=== PATIENT | female | born 1955 | race Caucasian/White ===

== ENCOUNTER 2021-11-23 11:53 | Inpatient (IN) | payer OTHER, SELFPAY ==
[~2021-11-23] VITALS: Ht 170.2 cm; Wt 149.7 kg
[2021-11-23 12:21] VITALS: BP 114/59
--- NOTE | 2021-11-23 14:58 | NUR ---
LAB AT PATIENT BEDSIDE
--- NOTE | 2021-11-23 15:10 | NUR ---
PATIENT ESCORTED TO ULTRASOUND VIA GURNEY
[2021-11-23 15:19] LABS: BASOPHILS # (AUTO) 0.1 K/uL (0.00-0.22); BASOPHILS % (AUTO) 1.2 % (0.0-2.0); EOSINOPHILS # (AUTO) 0.2 K/uL (0-0.4); EOSINOPHILS % (AUTO) 2.6 % (0.0-4.0); HEMATOCRIT 21.9 % (36-48); LYMPHOCYTES # (AUTO) 1.1 K/uL (2.5-16.5); LYMPHOCYTES % (AUTO) 16.6 % (20.5-51.1); MEAN CORPUSCULAR HEMOGLOBIN 26 pg (27-31); MEAN CORPUSCULAR HGB CONC 31 g/dL (33-37); MEAN CORPUSCULAR VOLUME 83.8 fL (80-94); MONOCYTES # (AUTO) 0.5 K/uL (0.8-1.0); MONOCYTES % (AUTO) 7.1 % (1.7-9.3); NEUTROPHILS # (AUTO) 4.7 K/uL (1.8-7.7); NEUTROPHILS % (AUTO) 72.5 % (42.2-75.2); PLATELET COUNT (AUTO) 367 K/uL (140-450); RED BLOOD CELL COUNT(AUTO) 2.61 MIL/uL (4.20-5.40); RED CELL DISTRIBUTION WIDTH 23.1 % (11.6-13.7); WHITE BLOOD COUNT (AUTO) 6.5 K/uL (4.8-10.8)
[2021-11-23 15:27] LABS: HEMOGLOBIN 6.9 g/dL (12.0-16.0)
[2021-11-23 15:37] LABS: CREATININE 0.7 mg/dL (0.6-1.3)
[2021-11-23 15:54] LABS: PROTHROMBIN TIME 11.6 secs (10.8-13.4)
--- NOTE | 2021-11-23 15:57 | NUR ---
EMT OBTAINING 12 LEAD EKG AT BEDSIDE
--- NOTE | 2021-11-23 16:49 | NUR ---
PATIENT REPORTS 10/[address] LOWER BACK[address] ROSA MADE AWARE.
[2021-11-23] MEDS ORDERED: DOCUSATE SODIUM 100 MG GELCAP PO PRN (16:50)
[2021-11-23] MEDS ORDERED: ONDANSETRON 4 MG/2 ML VIAL IM/IVP PRN (16:50)
[2021-11-23] MEDS ORDERED: ACETAMINOPHEN 325 MG TAB PO PRN (16:50)
[2021-11-23] MEDS ORDERED: HYDROcodone/APAP 7.5/325 MG 1 TAB PO PRN (16:50)
[2021-11-23] MEDS ORDERED: guaiFENesin DM 200/20 MG-10 ML 10 ML UDC PO PRN (16:50)
--- NOTE | 2021-11-23 17:00 | NUR ---
PATIENT STATES TO NEED SUCTION, 4 SUCTION PASSES PERFORMED. PATIENT TOLERATED WELL. ALL PATIENT NEEDS MET
[2021-11-23] MEDS: ONDANSETRON 4 MG/2 ML VIAL IVP ONE ×2 (17:14→17:19)
[2021-11-23] MEDS: MORPHINE SULFATE 4 MG/ML SYR IVP ONE ×2 (17:14→17:20)
[2021-11-23] MEDS: DEXT 5% /NACL 0.9% 1,000 ML IV SCH (19:12)
--- NOTE | 2021-11-23 19:26 | NUR ---
Pt report given to [facility]. Transfer of care at this time.
[2021-11-23 19:27] LABS: CHOL/HDL RATIO 2.5 (1-4.5); FREE T4 (FREE THYROXINE) 1.22 ng/dL (0.76-1.46); MAGNESIUM 1.9 mg/dL (1.8-2.4); PHOSPHORUS 3.9 mg/dL (2.5-4.9); THYROID STIMULATING HORMONE 2.32 uIU/mL (0.34-3.74)
--- NOTE | 2021-11-23 20:00 | NUR ---
PAGED DR. TUBBS ABOUT CHANGING PO MEDS TO G-TUBE.
[2021-11-23] MEDS: ZOLPIDEM 5 MG TAB PO PRN (22:31)
--- NOTE | 2021-11-23 22:32 | NUR ---
Attempted to get Urine but unsuccessful. pt had a large clot , tennis ball size, inside the perineum. pericare was perfromed , new brief provided, and pt repositioned. pt in a lateral semi fowlers position. will attempt urine collection at a later time.
--- NOTE | 2021-11-23 22:50 | NUR ---
PER DR TUBBS. ALL PAIN MEDS CHANGED TO GT
--- NOTE | 2021-11-24 00:20 | NUR ---
PATIENT BIB AMBULANCE FROM [facility] FOR LOW HGB. PT STATES SHE HAS HAD VAGINAL BLEEDING FOR 3/4 WEEKS WITH NO STOPPING. DENIES N/V/D; PT HAS A STAGE 2 PRESSUE ULCER ON SACRUM DUE TO IMMOBILIY. PT CANNOT AMBULATE AAOX3; PT DENIES ANY FEVER, CP, SOB, OR COUGH AT THIS TIME; PATIENT STATES PAIN OF 10/10 LEGS. VSS; PATIENT POSITIONED LATERAL SEMI FOWLERS FOR COMFORT; HOB ELEVATED; SIDE RAILSX2; ALLERGIES: LATEX , LISINOPRL, METOPROLOL PMH: DM2, COPD, AFIB, HYPERLIPIDEMIA, HTN, HYPOXIA.
--- NOTE | 2021-11-24 00:23 | NUR ---
pt repostioned, cleaned and given new brief
--- NOTE | 2021-11-24 00:48 | NUR ---
PT REPOSITIONED. GIVEN PILLOW. PT C/O PAIN IN LEGS AND HIPS
[2021-11-24] MEDS ORDERED: ACETAMINOPHEN 325 MG TAB ONE (00:56)
--- NOTE | 2021-11-24 02:30 | NUR ---
pt cleaned and changed. given new brief and repositioned.
[2021-11-24] MEDS: DEXT 5% /NACL 0.9% 1,000 ML IV SCH ×5 (04:07→20:05)
[2021-11-24] MEDS: HYDROcodone/APAP 7.5/325 MG 1 TAB GT PRN ×4 (04:54→21:15)
[2021-11-24 06:07] LABS: T4 (THYROXINE) 6.3 ug/dL (4.5-12.0)
[2021-11-24] MEDS ORDERED: DOCU-300 GT (06:26)
[2021-11-24] MEDS ORDERED: MULT-2112 GT (06:26)
[2021-11-24] MEDS ORDERED: LORA-476 PO (06:26)
[2021-11-24] MEDS ORDERED: SYN.05 GT (06:26)
[2021-11-24] MEDS ORDERED: APIX5TAB GT (06:26)
[2021-11-24] MEDS ORDERED: FENT100T TD (06:26)
[2021-11-24] MEDS ORDERED: MES60 GT (06:26)
[2021-11-24] MEDS ORDERED: ACET-8386 GT (06:26)
[2021-11-24] MEDS ORDERED: ELA50 GT (06:26)
[2021-11-24] MEDS ORDERED: INSU100V6 SQ (06:26)
[2021-11-24] MEDS ORDERED: QUET25TA GT (06:26)
[2021-11-24] MEDS ORDERED: QUET50TA GT (06:26)
[2021-11-24] MEDS ORDERED: GABA300C GT (06:26)
[2021-11-24] MEDS ORDERED: ASCO-518 GT/PO (06:26)
[2021-11-24] MEDS ORDERED: PYRI-218 GT (06:26)
[2021-11-24] MEDS ORDERED: ATOR10TA GT (06:26)
[2021-11-24] MEDS ORDERED: ASPI-1749 GT (06:26)
[2021-11-24] MEDS ORDERED: LANS15EC28 GT (06:26)
[2021-11-24] MEDS ORDERED: MIRABULK GT (06:26)
[2021-11-24] MEDS ORDERED: LEVE500T9 GT (06:26)
--- NOTE | 2021-11-24 07:11 | NUR ---
PT SUCTIONED. 3 PASS THROUGHS
[2021-11-24] MEDS ORDERED: PANTOPRAZOLE 40 MG TABEC PO SCH (09:00)
[2021-11-24] MEDS ORDERED: medroxyPROGESTERone 10 MG TAB PO SCH (09:00)
--- NOTE | 2021-11-24 09:25 | NUR ---
PATIENT HAS BEEN SCREENED AND CATEGORIZED LOW NUTRITION RISK. PATIENT WILL BE SEEN WITHIN 7 DAYS OF ADMISSION. 11/30/[address]
--- NOTE | 2021-11-24 09:40 | NUR ---
PT MOVED FROM CHAIR E TO BED 11. REPORT RECEIVED FROM SARAVANAN PAUL
[2021-11-24] MEDS ORDERED: LORazepam 2 MG/ML VIAL IVP PRN (10:10)
[2021-11-24] MEDS ORDERED: MORPHINE SULFATE 4 MG/ML SYR ONE (10:12)
[2021-11-24] MEDS ORDERED: PANTOPRAZOLE 40 MG INJ VIAL ONE (10:20)
[2021-11-24] MEDS ORDERED: WATER STERILE 10 ML MC ONE (10:21)
[2021-11-24] MEDS: PANTOPRAZOLE 40 MG INJ VIAL IVP SCH (10:31)
--- NOTE | 2021-11-24 10:54 | NUR ---
PATIENT REPOSITIONED WITH PILLOWS UNDER ARMS AND FEET. RESTING COMFORTABLY
--- NOTE | 2021-11-24 11:03 | NUR ---
66 Y/O FEMALE ARRIVED VIA AMBULANCE FROM [facility] C/O VAGINAL BLEEDING XS 2 DAYS PMH DM, COPD, RESP FAILURE WITH TRACH, AFIB, HTN, DVT, HLD, EPTIC ULCER, NEPHROLITHIASIS ALLERGIES LISINOPRIL, METROPOLOL, LATEX RESTING COMFORTABLY AT THIS TIME.
[2021-11-24 11:20] LABS: BASOPHILS # (AUTO) 0.1 K/uL (0.00-0.22); BASOPHILS % (AUTO) 1.2 % (0.0-2.0); EOSINOPHILS # (AUTO) 0.1 K/uL (0-0.4); EOSINOPHILS % (AUTO) 0.9 % (0.0-4.0); HEMATOCRIT 21.9 % (36-48); LYMPHOCYTES # (AUTO) 1.1 K/uL (2.5-16.5); LYMPHOCYTES % (AUTO) 18.2 % (20.5-51.1); MEAN CORPUSCULAR HEMOGLOBIN 26 pg (27-31); MEAN CORPUSCULAR HGB CONC 31 g/dL (33-37); MEAN CORPUSCULAR VOLUME 84.8 fL (80-94); MONOCYTES # (AUTO) 0.4 K/uL (0.8-1.0); MONOCYTES % (AUTO) 6.2 % (1.7-9.3); NEUTROPHILS # (AUTO) 4.6 K/uL (1.8-7.7); NEUTROPHILS % (AUTO) 73.5 % (42.2-75.2); PLATELET COUNT (AUTO) 388 K/uL (140-450); RED BLOOD CELL COUNT(AUTO) 2.58 MIL/uL (4.20-5.40); RED CELL DISTRIBUTION WIDTH 22.6 % (11.6-13.7); WHITE BLOOD COUNT (AUTO) 6.3 K/uL (4.8-10.8)
[2021-11-24 11:34] LABS: HEMOGLOBIN 6.7 g/dL (12.0-16.0)
[2021-11-24 11:52] LABS: ANION GAP 6.7 (8-16); CARBON DIOXIDE 34.1 mmol/L (21-32); CREATININE 0.7 mg/dL (0.6-1.3); POTASSIUM 3.8 mmol/L (3.5-5.1)
--- NOTE | 2021-11-24 12:00 | NUR ---
Consent signed per PATIENT agreeing to administration of blood. Blood has been type and crossmatched. Blood sent from blood bank. Information on unit of blood checked against patient wristband at bedside by two nurses. All information matches. Patient or responsible constitution party informed of potential complications associated with blood transfusion. Informed of possible transfusion reaction symptoms. Aware of need to notify nurse at once of itching, shortness of breath, flushing, feeling of impending doom, or other symptoms not previously present. Vital signs taken within 5 minutes prior to initiation of transfusion. RN will remain with patient for first 15 minutes of transfusion at which time vital signs will be re-assessed.
--- NOTE | 2021-11-24 12:18 | NUR ---
blood tranfusion started at 60ml/hr and increased to 100ml/hr. Vital signs charted and WNL. will continue to monitor
--- NOTE | 2021-11-24 12:54 | NUR ---
BLOOD TRANFUSION INCREASED FROM 100 ML/HR TO 150ML/HR Vital signs charted and WNL. will continue to monitor
--- NOTE | 2021-11-24 13:00 | NUR ---
patient changed and repositioned. Resting comfortably at this time.
[2021-11-24] MEDS: MORPHINE SULFATE 4 MG/ML SYR IVP PRN ×5 (13:08→23:27)
--- NOTE | 2021-11-24 15:00 | NUR ---
BLOOD TRANFUSION COMPLETED AT THIS TIME. NO REACTION NOTED AND VITAL SIGNS WNL
[2021-11-24] MEDS: LORazepam 2 MG/ML VIAL IVP PRN (15:45)
--- NOTE | 2021-11-24 16:15 | NUR ---
PT CHANGED AND REPOSITIONED. RESTING COMFORTABLY.
--- NOTE | 2021-11-24 19:18 | NUR ---
Pt report given to SARAVANAN MACHADO. Transfer of care at this time.
--- NOTE | 2021-11-24 20:05 | NUR ---
C/O PAIN, MEDICATED ORDERED
--- NOTE | 2021-11-24 23:10 | NUR ---
C/O SEVERE PAIN, MEDICATED ORDERED
--- NOTE | 2021-11-24 23:20 | NUR ---
CALLING OUT. REPOSITIONED, LINENS CHANGED. PT WITH MULTIPLE COMPLAINTS. PILLOWS ADJUSTED.
--- NOTE | 2021-11-25 02:55 | NUR ---
C/O PAIN, MEDICATED ORDERED
[2021-11-25] MEDS: MORPHINE SULFATE 4 MG/ML SYR IVP PRN ×6 (03:02→22:46)
--- NOTE | 2021-11-25 04:30 | NUR ---
AWAKE, CALLING OUT. LINENS CHANGED. PT POSITIONED
--- NOTE | 2021-11-25 06:00 | NUR ---
CALLS OUT. "I'M WET, I'M WET AND THERES NO tv" LINENS CHANGED. ASSISTED WITH POSITIONING FOR COMFORT
[2021-11-25] MEDS: LORazepam 2 MG/ML VIAL IVP PRN ×6 (06:43→22:42)
--- NOTE | 2021-11-25 07:39 | NUR ---
REPORT RECEIEVED FROM SARAVANAN MACHADO FOR TRANSFER OF CARE
[2021-11-25 09:22] LABS: BASOPHILS # (AUTO) 0.1 K/uL (0.00-0.22); EOSINOPHILS # (AUTO) 0.2 K/uL (0-0.4); EOSINOPHILS % (AUTO) 3.9 % (0.0-4.0); HEMOGLOBIN 8.7 g/dL (12.0-16.0); LYMPHOCYTES % (AUTO) 16.6 % (20.5-51.1); MEAN CORPUSCULAR HEMOGLOBIN 27 pg (27-31); MEAN CORPUSCULAR HGB CONC 32 g/dL (33-37); MEAN CORPUSCULAR VOLUME 84.6 fL (80-94); MONOCYTES # (AUTO) 0.5 K/uL (0.8-1.0); MONOCYTES % (AUTO) 7.7 % (1.7-9.3); NEUTROPHILS # (AUTO) 4.4 K/uL (1.8-7.7); NEUTROPHILS % (AUTO) 70.8 % (42.2-75.2); PLATELET COUNT (AUTO) 449 K/uL (140-450); RED CELL DISTRIBUTION WIDTH 21.2 % (11.6-13.7); WHITE BLOOD COUNT (AUTO) 6.2 K/uL (4.8-10.8)
[2021-11-25 09:40] LABS: ANION GAP 6.5 (8-16); CREATININE 0.7 mg/dL (0.6-1.3); POTASSIUM 3.5 mmol/L (3.5-5.1)
[2021-11-25] MEDS: DEXT 5% /NACL 0.9% 1,000 ML IV SCH ×3 (10:50→20:47)
--- NOTE | 2021-11-25 10:57 | NUR ---
PATIENT CHANGED AND GIVEN FRESH LINENS. RESTING COMFORTABLY AT THIS TIME
--- NOTE | 2021-11-25 12:31 | NUR ---
Patient appears to be resting comfortably in bed. Vital Signs within normal limits. Respirations even and unlabored.
--- NOTE | 2021-11-25 16:40 | NUR ---
Patient appears to be resting comfortably in bed. Vital Signs within normal limits. Respirations even and unlabored.
--- NOTE | 2021-11-25 18:07 | NUR ---
PATIENT CHANGED, REPOSITIONED AND GIVEN FRESH LINEN. RESTING COMFORTABLY AT THIS TIME.
--- NOTE | 2021-11-25 19:23 | NUR ---
Pt report given to SARAVANAN JAIMES. Transfer of care at this time.
--- NOTE | 2021-11-25 19:23 | NUR ---
REPORT RECEIVED FROM SARAVANAN COBB FOR CONTINUITY OF PT CARE AT THIS TIME.
--- NOTE | 2021-11-25 20:15 | NUR ---
PT APPEARS TO BE RESTING W EYES CLOSED IN SLIGHT R LATERAL /SUPINE POSITION. HOB SLIGHTLY EVELATED. BED LOCKED IN LOWEST POSITION W X2 SIDERAILS UP FOR PT SAFETY. PT CONNECTED TO MONITOR W VSS. PT ON 6L O2 SAT 94% TO TRACH COLLAR. BREATHING EVEN AND UNLABORED. NAD NOTED, WILL CONTINUE TO MONITOR.
--- NOTE | 2021-11-25 21:06 | NUR ---
RT AT BEDSIDE
--- NOTE | 2021-11-25 22:49 | NUR ---
PT C/O 10/10 LEG AND BACK PAIN. PT MEDICATED FOR PAIN. PT REPOSITIONED TO R LATERAL POSITION REQUESTED FOR COMFORT. PT LEGS ELEVATED.
--- NOTE | 2021-11-25 23:30 | NUR ---
PT APPEARS TO BE RESTING W EYES CLOSED IN R LATERAL POSITION. VSS. BREATHING EVEN AND UNLABORED. NAD NOTED, WILL CONTINUE TO MONITOR.
[2021-11-26] MEDS ORDERED: diphenhydrAMINE 50 MG/ML VIAL IVP ONE ×3 (00:05→04:15)
[2021-11-26] MEDS ORDERED: HALOPERIDOL IM 5 MG/ML VIAL IVP ONE ×3 (00:05→04:15)
--- NOTE | 2021-11-26 00:47 | NUR ---
MD DR. FOUNTAIN MADE AWARE PT BP AT 161/84.
--- NOTE | 2021-11-26 01:31 | NUR ---
PT C/O ONGOING BL LEG AND BACK PAIN 08/12, PT REQUESTING NORCO AND ATIVAN. PT PROVIDED W PERINEAL CARE, CLEAN LINENS AND REPOSITIONNING FOR COMFORT.
[2021-11-26] MEDS: hydrALAZINE 20 MG/ML VIAL IVP PRN (01:47)
[2021-11-26] MEDS: DEXT 5% /NACL 0.9% 1,000 ML IV SCH ×4 (01:48→20:30)
--- NOTE | 2021-11-26 01:51 | NUR ---
PT APPEARS TO BE ASLEEP W EYES CLOSED. VSS. ATINGE AND KIMCO HELD AT THIS TIME.
[2021-11-26] MEDS ORDERED: HALOPERIDOL IM 5 MG/ML VIAL ONE ×2 (02:09→07:00)
[2021-11-26] MEDS ORDERED: diphenhydrAMINE 50 MG/ML VIAL ONE ×2 (02:09→07:00)
[2021-11-26] MEDS: LORazepam 2 MG/ML VIAL IVP PRN ×3 (02:20→22:59)
--- NOTE | 2021-11-26 03:50 | NUR ---
PT O2SAT 87%, HR133. PLACED ON 10L TO T-PIECE. PT 02 SAT 92%, HR 117.
--- NOTE | 2021-11-26 04:35 | NUR ---
PT PROVIDED W PERINEAL CARE. REPOSITIONED TO R LATERAL PER PT PREFERENCE. ALL NEEDS MET AT THIS TIME. VSS. NAD NOTED, WILL CONTINUE TO MONITOR.
--- NOTE | 2021-11-26 05:27 | NUR ---
PT APPEARS TO BE SLEEPING W EYES CLOSED. BREATHING EVEN AND UNLABORED. NAD NOTED, WILL CONTINUE TO MONITOR,.
--- NOTE | 2021-11-26 07:15 | NUR ---
PT PROVIDED W PERINEAL CARE, REPOSITIONED FOR COMFORT. ALL NEEDS MET AT THIS TIME. VSS.
--- NOTE | 2021-11-26 07:24 | NUR ---
Pt report given to SARAVANAN BORGES. Transfer of care at this time.
--- NOTE | 2021-11-26 07:24 | NUR ---
Report and continuation of care received from SARAVANAN Huff.
--- NOTE | 2021-11-26 07:35 | NUR ---
Patient resting in R side supine position with pillows in place. Patient requesting she is wet; diaper checked without urine. commercial real estate assistant oxygen remains in place. Bed locked in lowest position, side rails x 2.
--- NOTE | 2021-11-26 08:12 | NUR ---
Called [phone] no answer.
--- NOTE | 2021-11-26 08:23 | NUR ---
Report given to SARAVANAN Wright. All questions answered.
--- NOTE | 2021-11-26 08:24 | NUR ---
REPORT RECEIVED FROM SARAVANAN BORGES , PT. IS TRANSFERRING FROM ER. PT. CAME WITH CC VAGINAL BLEEDING/ANEMIA. . BLOOD TRANSFUSION WAS DONE IN ER. POST TRANSFUSION HGB WAS 8.6.PER REPORT. AWAITING PT. TO ARRIVAL ON UNIT.WILL CONTINUE FOLLOW UP.
--- NOTE | 2021-11-26 08:30 | NUR ---
PT. ARRIVED ON UNIT VIA GURNEY. RECEIVED PT. TO THE BED. PROVIDE ALL COMFORTS AND ATTEBNDED ALL NEEDS. ALL SAFETY MEASURES PROVIDED. WILL CONTINUIE TO MONITOR THE PT..
[2021-11-26 08:45] VITALS: BP 140/72
--- NOTE | 2021-11-26 08:45 | NUR ---
Patient will be admitted to care of Dr. Brunson. Admited to Telemetry. Will go to room 112B Belongings list completed. Report to SARAVANAN Wright.
[2021-11-26] MEDS: PANTOPRAZOLE 40 MG INJ VIAL IVP SCH (09:48)
--- NOTE | 2021-11-26 09:50 | NUR ---
ADMINISTERED DUE MEDICATION. PT. TOLERATED WELL. PT. ALERT, AWAKE. STABLE ON T BAR. ALL SAFETY MEASURES IN PLACE. WILL CONTINUE TO MONITOR THE PT.
[2021-11-26 12:00] VITALS: BP 150/76
--- NOTE | 2021-11-26 12:19 | NUR ---
PATIENT VERY ANXIOUS AND AGITATED. MEDICATED WITH ANTI ANXIETY MEDICATION . BREATHINGS NORMAL ON T BAR. SAFETY MEASURES IN PLACED. WILL CONTINUE TO MONITOR THE PT.
--- NOTE | 2021-11-26 13:08 | NUR ---
SENT MESSAGE TO DR. ALTMAN BIOMASS FACILITATOR TO SEE THE PT. DR. FOUNTAIN TOLD. MD WANTS TO DISCHARGE THE PT. AFTER CLEARANCE FROM BIOMASS FACILITATOR.
[2021-11-26 14:22] LABS: BASOPHILS % (AUTO) 0.7 % (0.0-2.0); EOSINOPHILS % (AUTO) 0.8 % (0.0-4.0); HEMATOCRIT 26.2 % (36-48); HEMOGLOBIN 8.3 g/dL (12.0-16.0); LYMPHOCYTES # (AUTO) 0.5 K/uL (2.5-16.5); LYMPHOCYTES % (AUTO) 8.5 % (20.5-51.1); MEAN CORPUSCULAR HEMOGLOBIN 27 pg (27-31); MEAN CORPUSCULAR HGB CONC 32 g/dL (33-37); MEAN CORPUSCULAR VOLUME 84.7 fL (80-94); MONOCYTES # (AUTO) 0.3 K/uL (0.8-1.0); NEUTROPHILS # (AUTO) 5.2 K/uL (1.8-7.7); PLATELET COUNT (AUTO) 405 K/uL (140-450); RED CELL DISTRIBUTION WIDTH 21.8 % (11.6-13.7); WHITE BLOOD COUNT (AUTO) 6.1 K/uL (4.8-10.8)
[2021-11-26 14:33] LABS: ANION GAP 8.7 (8-16); CARBON DIOXIDE 29.5 mmol/L (21-32); CREATININE 0.6 mg/dL (0.6-1.3); POTASSIUM 3.2 mmol/L (3.5-5.1)
--- NOTE | 2021-11-26 14:51 | NUR ---
PT. COMFORTABLY SLEEPING IN THE BED. NO ACUTE DISTRESS NOTED. CONTINUE ON T BAR. ALL SAFETY MEASURES IN PLACE. WILL CONTINUE TO MONITOR THE PT.
[2021-11-26 16:00] VITALS: BP 152/86
--- NOTE | 2021-11-26 16:48 | NUR ---
ROUNDED TO THE PT. ROOM. PT. COMFORTABLY SLEEPING, O N T BAR. NO RESP. DISTRESS NOTED. ALL SAFETY MEASURES IN PLACE. WILL CONTINUE TO MONITOR THE PT.
[2021-11-26] MEDS: HYDROcodone/APAP 7.5/325 MG 1 TAB GT PRN (17:51)
--- NOTE | 2021-11-26 18:12 | NUR ---
DR. DENG MANAGER OF GLOBAL CONSULT CAME TO SEE THE PT..EXAMINED THE PT.PT. HAS NO VAGINAL BLEEDING AT [facility]. SAID OK TO DISCHARGE THE PATIENT. SAID OK TO TO DISCHARGE THE PT. WILL NOTIFY PCP DR. FOUNTAIN.AND FOLLOW UP.
--- NOTE | 2021-11-26 18:56 | NUR ---
NOTIFIED DR. FOUNTAIN VIA MESSAGE.RE. DR. SALINAS SEEN THE PT. AND SAID OK TO DISCHARGE THE PT. ALSO NOTIFIED RE. POTASSIUM LEVEL 3.2.. RETURNED MESSAGE BACK WITH NEW ORDER . LAB TEST IN AM. WILL ENDORSE TO PM SHIFT RN TO FOLLOW UP.
[2021-11-26] MEDS: POTASSIUM CHLORIDE 10 MEQ TABER PO PRN (19:09)
--- NOTE | 2021-11-26 19:10 | NUR ---
ADMINISTERED KCL 40MEQ VIA G TUBE X1 FOR POTASSIUM LEVEL 3.2. ORDER. PT. STABLE. WILL ENDORSE REPORT TO PM SHIFT RN FOR CONTINUITY OF CARE.
[2021-11-26 20:00] VITALS: BP 135/66
--- NOTE | 2021-11-26 20:07 | NUR ---
REPORT GIVEN TO PM SHIFT SARAVANAN MANN FOR CONTINUITY OF CARE. PT.STABLE
--- NOTE | 2021-11-26 20:59 | NUR ---
1900 PLACED PATIENT ON COOL AEROSOL AT 40% FIO2. SXNED PT THICK PALE YELLOW SECRETIONS
[2021-11-26] MEDS: ACETAMINOPHEN 325 MG TAB GT PRN (21:18)
--- NOTE | 2021-11-26 22:53 | NUR ---
2250 INCREASED FIO2 TO 100% VIA COOL AEROSOL. SATS DROPPED TO 66% ON 40%. SXNED PT. PATIENTS SATS IMPROVED TO 95% ON 100% FIO2
--- NOTE | 2021-11-26 23:00 | NUR ---
PATIENT IS AGITATED. ATIVAN ADMINISTERED ORDERED. V/S - BP- 135/66 P-84 R-20
[2021-11-26 23:05] LABS: BASOPHILS # (AUTO) 0.1 K/uL (0.00-0.22); BASOPHILS % (AUTO) 1.3 % (0.0-2.0); EOSINOPHILS # (AUTO) 0.1 K/uL (0-0.4); EOSINOPHILS % (AUTO) 1.7 % (0.0-4.0); HEMATOCRIT 25.7 % (36-48); HEMOGLOBIN 8.1 g/dL (12.0-16.0); LYMPHOCYTES # (AUTO) 0.5 K/uL (2.5-16.5); LYMPHOCYTES % (AUTO) 7.8 % (20.5-51.1); MEAN CORPUSCULAR HEMOGLOBIN 27 pg (27-31); MEAN CORPUSCULAR HGB CONC 32 g/dL (33-37); MEAN CORPUSCULAR VOLUME 85.2 fL (80-94); MONOCYTES # (AUTO) 0.5 K/uL (0.8-1.0); MONOCYTES % (AUTO) 7.8 % (1.7-9.3); NEUTROPHILS # (AUTO) 4.9 K/uL (1.8-7.7); NEUTROPHILS % (AUTO) 81.4 % (42.2-75.2); PLATELET COUNT (AUTO) 418 K/uL (140-450); RED BLOOD CELL COUNT(AUTO) 3.01 MIL/uL (4.20-5.40); RED CELL DISTRIBUTION WIDTH 21.9 % (11.6-13.7); WHITE BLOOD COUNT (AUTO) 6.1 K/uL (4.8-10.8)
[2021-11-27] VITALS: BP 147/96
--- NOTE | 2021-11-27 | NUR ---
PARIENT ASLEEP AT THIS TIME. NO SIGNS OF DISTRESS.
--- NOTE | 2021-11-27 00:20 | NUR ---
LOWERED FIO2 TO 70%. SATS 99%
[2021-11-27] MEDS: ZOLPIDEM 5 MG TAB PO PRN (01:18)
--- NOTE | 2021-11-27 01:18 | NUR ---
PATIENT UNABLE TO SLEEP, AMBIEN PRN GIVEN VIA G-TUBE.
[2021-11-27] MEDS: DEXT 5% /NACL 0.9% 1,000 ML IV SCH ×4 (02:05→20:50)
--- NOTE | 2021-11-27 02:16 | NUR ---
PATIENT ASLEEP , NO S/S OF DISTRESS. BREATHING EVEN UNLABORED. CALL LIGHT WITHIN REACH.
[2021-11-27 04:00] VITALS: BP 159/94
[2021-11-27 06:53] LABS: BASOPHILS # (AUTO) 0.1 K/uL (0.00-0.22); BASOPHILS % (AUTO) 1.2 % (0.0-2.0); EOSINOPHILS % (AUTO) 0.7 % (0.0-4.0); HEMATOCRIT 25.7 % (36-48); HEMOGLOBIN 8.2 g/dL (12.0-16.0); LYMPHOCYTES # (AUTO) 0.3 K/uL (2.5-16.5); LYMPHOCYTES % (AUTO) 6.9 % (20.5-51.1); MEAN CORPUSCULAR HEMOGLOBIN 27 pg (27-31); MEAN CORPUSCULAR HGB CONC 32 g/dL (33-37); MEAN CORPUSCULAR VOLUME 84.8 fL (80-94); MONOCYTES # (AUTO) 0.5 K/uL (0.8-1.0); NEUTROPHILS % (AUTO) 81.2 % (42.2-75.2); PLATELET COUNT (AUTO) 354 K/uL (140-450); RED BLOOD CELL COUNT(AUTO) 3.03 MIL/uL (4.20-5.40); RED CELL DISTRIBUTION WIDTH 21.9 % (11.6-13.7)
[2021-11-27] MEDS: HYDROcodone/APAP 7.5/325 MG 1 TAB GT PRN ×3 (07:13→23:28)
--- NOTE | 2021-11-27 07:40 | NUR ---
REPORT RECEIVED FROM SCENARIO WRITER NURSE FOR CONTINUITY OF CARE. PT IS AOX2, ABLE TO MAKE NEEDS KNOWN. RESPIRATIONS EVEN AND UNLABORED. ON 2L 60% FIO2 ON TRACT OT T-BAR. NO DISTRESS NOTED. IV INTACT AND PATENT. IVF IS INFUSING. NOTED G-TUBE BUT CURRENTLY NPO EXCEPT MEDS. PT DENIES PAIN. PLAN OF CARE DISCUSSED. SAFETY PREACUTIONS IN PLACE. CALL LIGHT WITHIN REACH. WILL CONTINUE TO MONITOR.
[2021-11-27 07:45] LABS: ANION GAP 7.7 (8-16); CARBON DIOXIDE 30.6 mmol/L (21-32); CREATININE 0.5 mg/dL (0.6-1.3); POTASSIUM 3.3 mmol/L (3.5-5.1)
--- NOTE | 2021-11-27 07:48 | NUR ---
ENDORSED PATIENT TO AM NURSE FOR CONTINUITY OF CARE.
[2021-11-27 08:00] VITALS: BP 125/55
[2021-11-27] MEDS: PANTOPRAZOLE 40 MG INJ VIAL IVP SCH (08:55)
--- NOTE | 2021-11-27 09:00 | NUR ---
ALL SCHEDULED MEDS GIVEN. PT IS STABLE. NO DISTRESS NOTED. WILL CONTINUE TO MONITOR.
[2021-11-27] MEDS: MORPHINE SULFATE 4 MG/ML SYR IVP PRN (10:49)
--- NOTE | 2021-11-27 10:49 | NUR ---
PATIENT COMPLAINED OF LEFT HIP PAIN 07/13. ADMINISTERED PRN PAIN MEDICATIONS PER MD ORDERED.
[2021-11-27] MEDS ORDERED: DOCU-299 PO (10:57)
[2021-11-27 12:00] VITALS: BP 131/57
--- NOTE | 2021-11-27 13:27 | NUR ---
DC PLANNING: ORDER RECEIVED FOR THE PATIENT TO RETURN TO [facility]. PATIENT IS TRACH TO T-PIECE, O2 12 L, DOCUMENTATION OF DEEP SUCTIONING. ASSIGNED ROOM 124A, ACCEPTING DR EDMONDSON. NUMBER TO CALL REPORT [phone], PATIENT WILL BE PICKED UP BY [facility] AT 1500. ABOVE ENDORSED TO THE PATIENTS SARAVANAN CARMONA. BRISSA WILL FOLLOW. Addendum: 11/29/21 at 1400 by Anel Damon CM DC PLANNING: PATIENT TO DC BACK TO [facility] TODAY, NOW ON 5 L WITH SMALL OXYMIZER, TRACH TO T-PIECE. UPDATED INFORMATION FAXED TO UMER AT [facility], SET UP WITH MEL SALINAS LEVEL HIGHBALLER TIME 1530. NUMBER TO CALL REPORT [phone], ABOVE ENDORSED TO RIA. [place] TO FOLLOW.
--- NOTE | 2021-11-27 13:38 | NUR ---
RECEIVED CALL FROM BRISSA VASQUEZ THAT PATIENT WILL BE TRANSPORTED BACK TO [facility] IN ROOM 124A
[2021-11-27] MEDS: POTASSIUM CHLORIDE 10 MEQ TABER PO PRN (14:04)
--- NOTE | 2021-11-27 14:35 | NUR ---
TITRATED TO 30% FIO2 9L ON T-PIECE. O2 SATURATION AT 97%
--- NOTE | 2021-11-27 14:43 | NUR ---
CONTACTED GRETCHEN WOODLAND AND ENDORSED PATIENT REPORT TO SARAVANAN MARION. PT WILL BE GOING TO ROOM 124A, UNDER DR. EDMONDSON. ETA WITH [facility] AT 1500 Addendum: 11/27/21 at 1655 by Phu Miller RN RN PATIENT WILL BE TRANSPORTED TO FACILITY WITH 10 L 40% FIO2 TRACH TO T-PIECE.
[2021-11-27 14:56] VITALS: BP 131/57
--- NOTE | 2021-11-27 15:36 | NUR ---
ENDORSED DISCHARGE INSTRUCTIONS TO PATIENT. PT WAS NOT ABLE TO COMPREHEND DISCHARGE INSTRUCTIONS DUE TO CONDITION.
--- NOTE | 2021-11-27 15:45 | NUR ---
PATIENT DISCHARGED OFF THE UNIT. PICKED UP BY [facility] AND WILL BE TRANSPORTED TO [facility]. PT WAS STABLE BEFORE DISCHARGE.
--- NOTE | 2021-11-27 17:00 | NUR ---
PATIENT WAS READMITTED TO THE [facility] AND TRANSPORTED TO ROOM 111A. PATIENT WAS INITIALLY REFUSED AT [facility] DUE TO PATIENT BEING ON 10 L 40% FIO2 TRACH TO T-BAR. PATIENT WAS SHOWING SIGNS OF CYANOSIS AT THE FACILITY AND DECIDED TO SEND PATIENT BACK TO OUR ER. UPON ARRIVAL TO ER, PATIENT WAS STABLE AT 96% O2 AND SHOWING NO SIGNS OF CYANOSIS. CM AND ATTENDING MD IS AWARE OF THE SITUATION. AWAITING FOR PATIENT ARRIVAL TO THE UNIT.
--- NOTE | 2021-11-27 17:04 | NUR ---
DC PLANNING: BRISSA RECEIVED A CALL FROM UMER AT [facility] STATING THAT THEY ARE NOT ABLE TO MANAGE THE PATIENT ON 10 LITERS OF O2. CM ASKED FOR AN EXPLANATION AND UMER STATED THAT THEY CAN'T MANAGE THE PATIENT OVER 5 LITERS. CM POINTED OUT THAT RESPIRATORY FLOW SHEET HAD BEEN SENT WITH THE CLINICAL PACKET FOR REVIEW AND THAT THE LITER FLOW WAS CLEARLY STATED ON IT. CM ALSO REMINDED [facility] THAT HER NURSING STAFF SPOKE WITH THE RN FOR THE PATIENT HERE AND TOLD HIM THAT THEY COULD ACCEPT THE PATIENT ON AN FIO2 OF 40%. THE RN TITRATED THE PATIENT DOWN TO 40% AND THE PATIENT WAS SATTING AT 92% WHICH IS WHY SHE WAS SENT BACK TO [facility]. [facility] STATED THAT NURSING SHOULD HAVE TOLD HER ABOUT THE FIO2 WHEN THEY REVIEWED THE CLINICAL PACKET SENT BY THE CM AND THAT NURSING SHOULD HAVE BEEN CLEAR ABOUT THE LITER FLOW WHEN THE HOSPITAL RN CALLED TO GIVE REPORT. [facility] STATES THAT SHE IS SENDING THE PATIENT BACK AND THAT THEY WILL ACCEPT THE PATIENT ONCE SHE IS ON 5 LITERS OF O2. PATIENT TO BE ADMITTED BACK TO THE ROOM SHE VACATED, CM WILL FOLLOW UP IN THE AM.
--- NOTE | 2021-11-27 19:45 | NUR ---
ENDORSED TO SCHOOL AGE PROGRAM TEACHER NURSE FOR CONTINUITY OF CARE. PT IS STABLE.
[2021-11-27 20:00] VITALS: BP 151/103
--- NOTE | 2021-11-27 20:00 | NUR ---
RECEIVED PATIENT FROM DAY SHIFT NURSE .ALERT NO S/SX OF DISTRESS. SIDE RAILS UP, CALL LIGHT IN PLACE.
--- NOTE | 2021-11-27 23:00 | NUR ---
CLEANED AND REPOSITIONED . NO DISTRESS NOTED
[2021-11-28] VITALS: BP 145/99
[2021-11-28] MEDS: DEXT 5% /NACL 0.9% 1,000 ML IV SCH ×4 (03:38→21:42)
--- NOTE | 2021-11-28 03:55 | NUR ---
BP-168/95. MEDICATED ORDERED
[2021-11-28] MEDS: hydrALAZINE 20 MG/ML VIAL IVP PRN (03:57)
[2021-11-28 04:00] VITALS: BP 168/95
--- NOTE | 2021-11-28 07:40 | NUR ---
RECEIVED REPORT FROM MANAGER STRATEGIC NURSE FOR CONTINUITY OF CARE. PT IN BED, ASLEEP. ON TRACH TO TBAR AT 5L. BREATHING SYMMETRICAL. FLACC 0. WITH LEFT WRIST 20G INFUSING D5NS AT 160CC, NO S/SX OF INFILTRATION NOTED. CALL LIGHT PLACED WITHIN REACH. ALL SAFETY MEASURES IN PLACE.
--- NOTE | 2021-11-28 07:45 | NUR ---
ENDORSED PATIENT TO AM NURSE FOR CONTINUITY OF CARE. NO ACUTE DISTRESS.
[2021-11-28 08:00] VITALS: BP 151/62
[2021-11-28] MEDS: PANTOPRAZOLE 40 MG INJ VIAL IVP SCH (08:39)
--- NOTE | 2021-11-28 08:39 | NUR ---
SCHEDULED AM MEDICATION GIVEN PER MD ORDER. Addendum: 11/28/21 at 1149 by Jeannie Acuna RN RN SPOKE TO PT WITH PT FOCUSED FACTORY MANAGER GRISELDA VIA PHONE. PT MOUTHING WORDS BUT NOT AUDIBLY VOCAL
--- NOTE | 2021-11-28 11:49 | NUR ---
SPOKE TO PT WITH PT GOLD ASSAYER GRISELDA VIA PHONE. PT MOUTHING WORDS BUT NOT AUDIBLY VOCAL
[2021-11-28 12:00] VITALS: BP 133/56
[2021-11-28] MEDS: POTASSIUM CHLORIDE 20% 40 MEQ/15 ML UDC GT PRN (12:10)
--- NOTE | 2021-11-28 12:10 | NUR ---
PRN K GIVEN FOR K LEVEL 3.3
[2021-11-28] MEDS: MENTHOL/ZINC OXIDE 113 GM TUBE TP SCH ×2 (13:00→20:48)
--- NOTE | 2021-11-28 15:46 | NUR ---
PT ASLEEP. ON TRACH TO TBAR AT 10L, BREATHING SYMMETRICAL. FLACC 0. PERIPHERAL IV LINE ON LEFT WRIST INTACT AND PATENT. ALL SAFETY MEASURES IN PLACE. WILL CONTINUE TO MONITOR.
[2021-11-28 16:00] VITALS: BP 152/80
[2021-11-28] MEDS: HYDROcodone/APAP 7.5/325 MG 1 TAB GT PRN (17:47)
--- NOTE | 2021-11-28 17:47 | NUR ---
PRN NORCO GIVEN FOR C/O LEFT HIP PAIN 04/12
[2021-11-28] MEDS ORDERED: DEXTROSE 50% 50 ML SYR IVP PRN (19:30)
[2021-11-28] MEDS ORDERED: INSULIN LISPRO SLIDING SCALE 100 UNITS/ML VIAL SUBQ PRN (19:30)
--- NOTE | 2021-11-28 19:56 | NUR ---
TUBE FEEDING ORDERED PER MD. WILL FOLLOW UP WITH DIETARY TO OBTAIN FEEDING
[2021-11-28] MEDS: BLOOD GLUCOSE MONITORING 1 DEV DEV FS SCH (21:37)
[2021-11-28 22:56] VITALS: BP 118/77
[2021-11-29] VITALS: BP 160/77
[2021-11-29] MEDS: DEXT 5% /NACL 0.9% 1,000 ML IV SCH ×2 (04:01→10:36)
[2021-11-29] MEDS ORDERED: ALBUTEROL SULFATE/IPRATROPIU 3 ML SOL IH PRN (04:50)
[2021-11-29] MEDS ORDERED: ALBUTEROL SULFATE/IPRATROPIU 3 ML SOL IH ONE (04:58)
[2021-11-29 05:30] VITALS: BP 146/95
[2021-11-29] MEDS: BLOOD GLUCOSE MONITORING 1 DEV DEV FS SCH ×2 (06:46→11:36)
[2021-11-29 07:20] LABS: BASOPHILS % (AUTO) 0.3 % (0.0-2.0); HEMATOCRIT 26.2 % (36-48); HEMOGLOBIN 8.3 g/dL (12.0-16.0); LYMPHOCYTES # (AUTO) 0.2 K/uL (2.5-16.5); LYMPHOCYTES % (AUTO) 3.6 % (20.5-51.1); MEAN CORPUSCULAR HEMOGLOBIN 27 pg (27-31); MEAN CORPUSCULAR HGB CONC 32 g/dL (33-37); MONOCYTES # (AUTO) 0.3 K/uL (0.8-1.0); MONOCYTES % (AUTO) 4.8 % (1.7-9.3); NEUTROPHILS % (AUTO) 91.3 % (42.2-75.2); PLATELET COUNT (AUTO) 336 K/uL (140-450); RED BLOOD CELL COUNT(AUTO) 3.08 MIL/uL (4.20-5.40); WHITE BLOOD COUNT (AUTO) 6.5 K/uL (4.8-10.8)
--- NOTE | 2021-11-29 07:30 | NUR ---
RECEIVED REPORT FROM PERSONAL LINES UNDERWRITER NURSE FOR CONTINUITY OF CARE. PT ASLEEP IN BED. ON TRACH TO TBAR WITH 10L. BREATHING SYMMETRICAL. LEFT WRIST 20G, INTACT AND PATENT INFUSING D5NS AT 160CC/HR, NO S/SX OF INFILTRATION NOTED. FLACC 0. CALL LIGHT WITHIN REACH. ALL SAFETY MEASURES IN PLACE. WILL CONTINUE TO MONITOR.
[2021-11-29 08:00] VITALS: BP 151/73
[2021-11-29] MEDS: PANTOPRAZOLE 40 MG INJ VIAL IVP SCH (08:22)
[2021-11-29] MEDS: ACETAMINOPHEN 325 MG TAB GT PRN (08:22)
--- NOTE | 2021-11-29 08:25 | NUR ---
SCHEDULED AM MEDICATION GIVEN PER MD ORDER, PRN TYLENOL ALSO GIVEN FOR C/O PAIN
[2021-11-29 08:50] LABS: CARBON DIOXIDE 27.9 mmol/L (21-32); CREATININE 0.6 mg/dL (0.6-1.3)
[2021-11-29] MEDS: MENTHOL/ZINC OXIDE 113 GM TUBE TP SCH (09:00)
[2021-11-29 09:15] LABS: POTASSIUM 2.9 mmol/L (3.5-5.1)
--- NOTE | 2021-11-29 10:26 | NUR ---
NOTIFIED DR SALINAS RE: CRITICAL VALUE, NO CHANGE IN ORDERS. IVF ORDER UPDATED.
[2021-11-29] MEDS: POTASSIUM CHLORIDE 20% 40 MEQ/15 ML UDC GT PRN (10:35)
--- NOTE | 2021-11-29 10:36 | NUR ---
PRN K GIVEN FOR K LEVEL 2.9
--- NOTE | 2021-11-29 11:15 | NUR ---
PATIENT WAS ON HUMIIDIFIED T-PIECE WITH AEROSOL UNIT AT 12 LITERS/60% FIO2. REPLACED PER STAFFING TO 5 LITERS OXYGENIZER/BLEED IN W SMALL HUMIDIFIER. PATIENT TOLERATING AT THIS TIME.
--- NOTE | 2021-11-29 11:35 | NUR ---
SPOKE TO RT. PT O2 TITRATED TO 5L NON-HUMIDIFIED. PT TOLERATING WELL AT 95%. NO S/S OF DISTRESS. CALL LIGHT IN REACH. ALL SAFETY MEASURES IN PLACE. PT CLEANED AND CHANGED.
[2021-11-29 12:00] VITALS: BP 142/73
--- NOTE | 2021-11-29 12:17 | NUR ---
SPOKE TO CM PAT. CM TO ARRANGE TRANSPORT FOR PT TO [facility] FOR DISCHARGE. PT STILL TOLERATING 5L O2 VIA TBAR. 95%
--- NOTE | 2021-11-29 14:15 | NUR ---
CALLED GRETCHEN RAMIREZ AND GAVE REPORT TO NURSE MARCO.
--- NOTE | 2021-11-29 14:15 | NUR ---
PT ASLEEP IN BED, TRACH TO TBAR AT 5L SATING AT 99%. BREATHING SYMMETRICAL. FLACC 0.
--- NOTE | 2021-11-29 14:48 | NUR ---
PT DISCHARGED TO [facility] WITH [facility], PT HAD NO BELONGINGS. NO SOB NOTED AT THIS TIME, FLACC 0. IN STABLE CONDITION.
== END 2021-11-29 14:50 | DRG 760 ==
LOC: MED 11:53 → MTU 16:52 → UNDODISIN 11-27 15:45 → MTU 11-27 16:52
PROVIDERS: ADMIT Family Medicine; ATTEND Family Medicine
DX: N92.4 Excessive bleeding in the premenopausal period (principal); J96.10 Chronic respiratory failure, unspecified whether with hypoxia or hypercapnia; Z68.43 Body mass index [BMI] 50.0-59.9, adult; D64.9 Anemia, unspecified; I10 Essential (primary) hypertension; E11.9 Type 2 diabetes mellitus without complications; J44.9 Chronic obstructive pulmonary disease, unspecified; Z20.822 Contact with and (suspected) exposure to COVID-19; E78.2 Mixed hyperlipidemia; I51.7 Cardiomegaly; E66.01 Morbid (severe) obesity due to excess calories; Z88.8 Allergy status to other drugs, medicaments and biological substances; Z91.014 Allergy to mammalian meats; Z79.899 Other long term (current) drug therapy; Z93.0 Tracheostomy status
CPT/HCPCS: 36415; 36430; 71045; 76856; 80048; 82150; 82948; 83036; 83690; 83735; 83880; 84100; 84436; 84439; 84443; 84479; 85025; 85610; 85730; 86886; 86900; 86901; 86920; 87081; 93005; 96372; 96374; 96375; 99291; C9113; J0360; J1050; J1200; J1630; J2060; J2270; J2405; P9016; Q0092